=== PATIENT | male | born 1945 | race Two or more races ===

== ENCOUNTER 2020-12-27 08:40 | Day surgery (SDC) | payer OTHER ==
[~2020-12-27 08:40] MED LIST: ALDACTONE25 MG PO; ATACAND HCT 321 EAC1 PO; DOXAZOSIN MESYLA2 MG PO; FINASTERIDE5 MG PO; LIPITOR20 MG PO; TAMS0.4C PO; TOPROL XL50 M1 PO
[2020-12-27] MEDS ORDERED: ULTRACET PO (13:21)
== END 2020-12-27 17:50 | disposition home or self-care (01) ==
LOC: CIR.AMB 08:40
PROVIDERS: ATTEND Surgery
DX: C20 Malignant neoplasm of rectum (principal); Z20.822 Contact with and (suspected) exposure to COVID-19
CPT/HCPCS: 36561; C1751

== ENCOUNTER 2021-03-29 07:14 | Day surgery (SDC) | payer OTHER ==
[~2021-03-29 07:14] MED LIST changes: +ULTRACET PO
== END 2021-03-29 12:00 | disposition home or self-care (01) ==
LOC: CIR.AMB 07:14
PROVIDERS: ATTEND Surgery
DX: K52.89 Other specified noninfective gastroenteritis and colitis (principal); Z20.822 Contact with and (suspected) exposure to COVID-19

== ENCOUNTER 2021-04-19 14:12 | Emergency (ER) | payer OTHER ==
[~2021-04-19] VITALS: Ht 177.8 cm; Wt 74.8 kg
== END 2021-04-19 22:28 | disposition home or self-care (01) ==
LOC: ER 14:12
DX: U07.1 COVID-19 (principal); K92.1 Melena

== ENCOUNTER 2021-04-25 09:45 | Emergency (ER) | payer OTHER ==
[~2021-04-25] VITALS: Ht 177.8 cm; Wt 81.6 kg
== END 2021-04-25 15:11 | disposition home or self-care (01) ==
LOC: ER 09:45
DX: U07.1 COVID-19 (principal); R05 Cough; R06.02 Shortness of breath

== ENCOUNTER 2021-04-26 11:45 | Outpatient (CLI) | payer OTHER | END 2021-04-26 13:45 | disposition home or self-care (01) | LOC: ASH CLINIC 11:45 | PROVIDERS: ATTEND Emergency Medicine | DX: Z23 Encounter for immunization (principal); U07.1 COVID-19 ==

== ENCOUNTER 2023-03-29 06:15 | Day surgery (SDC) | payer OTHER ==
[~2023-03-29] VITALS: Ht 177.8 cm; Wt 80.3 kg
[~2023-03-29 06:15] MED LIST changes: +ALLOPURINOL100 MG PO; +ATORVASTATIN CA10 MG PO; +ELIQUIS2.5 MG PO
[2023-03-29] MEDS ORDERED: TRAM1TAB98 PO (10:46)
== END 2023-03-29 11:50 | disposition home or self-care (01) ==
LOC: CIR.AMB 06:15
PROVIDERS: ATTEND Surgery
DX: C20 Malignant neoplasm of rectum (principal); Z85.040 Personal history of malignant carcinoid tumor of rectum; Z91.013 Allergy to seafood; Z88.0 Allergy status to penicillin; Z88.6 Allergy status to analgesic agent; Z20.822 Contact with and (suspected) exposure to COVID-19; I10 Essential (primary) hypertension; Z95.810 Presence of automatic (implantable) cardiac defibrillator